=== PATIENT | male | born 1975 | race Caucasian/White ===

== ENCOUNTER 2018-06-21 21:26 | Inpatient (IN) | payer MEDICAID, OTHER ==
[~2018-06-21] VITALS: Ht 193 cm; Wt 113.7 kg
--- NOTE | 2018-06-21 21:39 | NUR ---
PT IN GOWN IN [facility]; PT ROOM SECURED FOR PT AND STAFF SAFETY. PT INSTRUCTED TO REMOVE ALL CLOTHING AND CHANGE INTO GOWN. PT HAD 2 OF 2 BAGS WITH PERSONAL ITEMS LOCKED IN LOCKED STORAGE. PT PROVIDED URINE CUP AND INSTRUCTED TO VOID WHEN POSSIBLE. PT EDUCATED ON ER PROCESS AND VERBALIZES UNDERSTANDING. BUSINESS PROCESS ANALYSTRUBEN JIMENEZ NOTIFIED OF NEED FOR SITTER. AWAITING ERP FOR PT DISPOSITION AND POC.
[2018-06-21] MEDS ORDERED: OLANZAPINE 5 MG TABLET PO STA (21:59)
[2018-06-21] MEDS ORDERED: LORazepam 1MG TABLET PO ONE (22:00)
[2018-06-21 22:10] LABS: BASOPHILS # (AUTO) 0.08 x10^3/uL (0-0.1); BASOPHILS % (AUTO) 1 % (0-1); EOSINOPHILS # (AUTO) 0.12 x10^3/uL (0-0.4); EOSINOPHILS % (AUTO) 1 % (1-7); LYMPHOCYTES # (AUTO) 1.92 x10^3/uL (1-3.4); LYMPHOCYTES % (AUTO) 19 % (22-44); MD NO; MEAN CORPUSCULAR HEMOGLOBIN 31.5 pg (27.5-34.5); MEAN CORPUSCULAR HGB CONC 35.1 g/dL (33.2-36.2); MEAN CORPUSCULAR VOLUME 89.7 fL (81-97); MEAN PLATELET VOLUME 7.9 fL (7.4-10.4); MONOCYTES # (AUTO) 0.54 x10^3/uL (0.2-0.8); MONOCYTES % (AUTO) 5 % (2-9); NEUTROPHILS # (AUTO) 7.42 x10^3/uL (1.8-6.8); NEUTROPHILS % (AUTO) 74 % (42-75); PLATELET COUNT 322 x10^3/uL (130-400); RED BLOOD COUNT 4.57 x10^6/uL (4.38-5.82); RED CELL DISTRIBUTION WIDTH 13.2 % (9.4-14.8)
[2018-06-21 22:17] LABS: ALANINE AMINOTRANSFERASE 42 U/L (12-78); ALBUMIN 4.1 g/dL (3.4-5.0); ANION GAP 6 mmol/L (5-15); CALCIUM 8.5 mg/dL (8.5-10.1); CHLORIDE 109 mmol/L (98-107); SALICYLATE LEVEL 1.7 mg/dL (2.8-20.0)
[2018-06-21 22:20] LABS: ACETAMINOPHEN < 2 mcg/mL (10-30); ALKALINE PHOSPHATASE 86 U/L (45-117); BILIRUBIN,TOTAL 0.6 mg/dL (0.2-1.0); CREATININE 1.23 mg/dL (0.7-1.3); TOTAL PROTEIN 7.1 g/dL (6.4-8.2)
[2018-06-21] MEDS ORDERED: OLANZAPINE 5 MG TABLET ONE (22:22)
[2018-06-21] MEDS ORDERED: LORazepam 1MG TABLET ONE (22:22)
--- NOTE | 2018-06-21 22:34 | NUR ---
PT MEDICATED PER MAY. BREATHALYZER PERFORMED AT BS.
--- NOTE | 2018-06-21 22:54 | NUR ---
REPORT OF PT TO RUBEN MARTE. ALL QUESTIONS ANSWERED. PT MOVED FROM ER ROOM 1 TO ER ROOM 38.
--- NOTE | 2018-06-21 23:16 | NUR ---
REPORT RECEIVED FROM JULI MIRANDA.
--- NOTE | 2018-06-21 23:16 | NUR ---
PT PROVIDED SOME WATER FOR UA.
--- NOTE | 2018-06-21 23:37 | NUR ---
TP RN: TELEPSYCH CONSULT INITIATED.
--- NOTE | 2018-06-21 23:59 | NUR ---
UA COLLECTED AND SENT.
[2018-06-22] LABS: MICROSCOPIC NOT IND
[2018-06-22 00:03] LABS: CULTURE INDICATED? NO
[2018-06-22 00:12] LABS: AMPHETAMINE SCREEN, URINE Negative (Negative); BARBITURATE SCREEN, URINE Negative (Negative); BENZODIAZEPINE SCREEN, URINE Negative (Negative); CANNABINOID SCREEN, URINE Positive (Negative); COCAINE SCREEN, URINE Negative (Negative); METHADONE SCREEN, URINE Negative (Negative); OPIATE SCREEN, URINE Negative (Negative)
--- NOTE | 2018-06-22 00:59 | NUR ---
PT SLEEPING IN [facility]. RESPS EVEN AND UNLABORED. SITTER MONITORING FROM HALLWAY FOR SAFETY. ROOM REMAINS SECURE.
--- NOTE | 2018-06-22 01:51 | NUR ---
pt sleeping in [facility]. resps even and unlabored. sitter monitoring from hallway for safety. room remains secure.
--- NOTE | 2018-06-22 02:45 | NUR ---
pt sleeping in [facility]. resps even and unlabored. sitter monitoring from hallway for safety. room remains secure.
--- NOTE | 2018-06-22 04:09 | NUR ---
pt sleeping in [facility]. resps even and unlabored. sitter monitoring from hallway for safety. room remeins secure.
--- NOTE | 2018-06-22 04:14 | NUR ---
report given to telepsych at this time. all questions answered.
--- NOTE | 2018-06-22 05:00 | NUR ---
RECEIVED REPORT FROM ESTUARDO. PT RESTING CALMLY IN BED. WILL CONTINUE TO MONITOR. SITTER OUTSIDE DOOR.
--- NOTE | 2018-06-22 05:15 | NUR ---
BREAKFAST ORDERED FOR PT.
--- NOTE | 2018-06-22 06:58 | NUR ---
REPORT TO LILLIAN MIRANDA. PT RESTING IN BED WITH EYES CLOSED. SITTER AT DOOR.
--- NOTE | 2018-06-22 07:35 | NUR ---
pt found sleeping in gurney, arouses to verbal stimuli, no acute s/s of distress. denies needs at this time. sitter monitoring from [facility] for safety, room secured.
--- NOTE | 2018-06-22 08:16 | NUR ---
pt provided with breakfast tray. pt denies any further needs at this time
[2018-06-22] MEDS ORDERED: ACETAMINOPHEN 325 MG TABLET PO PRN (08:30)
[2018-06-22] MEDS ORDERED: ONDANSETRON ODT 4 MG PO PRN (08:30)
[2018-06-22] MEDS ORDERED: OLANZAPINE 5 MG TABLET PO PRN (08:30)
[2018-06-22] MEDS ORDERED: POLYETHYLENE GLYCOL 17 GM PACKET PO PRN (08:30)
[2018-06-22] MEDS ORDERED: OLANZAPINE 10 MG INJ IM PRN (08:30)
[2018-06-22] MEDS ORDERED: IBUPROFEN 600 MG TABLET PO PRN (08:30)
[2018-06-22] MEDS ORDERED: BISACODYL 10 MG SUPP PR PRN (08:30)
[2018-06-22] MEDS ORDERED: OLANZAPINE 5 MG TABLET ONE (09:53)
--- NOTE | 2018-06-22 10:11 | NUR ---
PT RESTING IN [facility]. NO ACUTE S/S OF DISTRESS. PT REPORTS PERSISTENT AUDITORY HALLUCINATIONS AND CLARIFIES THE VOICES ARE FROM FAMILY [facility]. PT MEDICATED PER MAY. SITTER MONITORING FROM [facility] FOR SAFETY. ROOM SECURED. PT PROVIDED WITH WATER
--- NOTE | 2018-06-22 12:06 | NUR ---
PT SLEEPING IN GURNEY, AROUSES TO VERBAL STIMULI. PROVIDED WITH MEAL TRAY. PT DENIES FURTHER NEEDS AT THIS TIME. SITTER MONITORING FROM [facility] FOR SAFETY
[2018-06-22] MEDS ORDERED: QUET100T4 PO (12:31)
--- NOTE | 2018-06-22 12:40 | NUR ---
report received at bedside from RUBEN Alexis. Pt is a&ox4, neuro intact. resps even and unlabored. pt denies pain. pt denies any difficulty voiding, denies constipation. pt states he is anxious, requesting prn anxiety medication, pt cooperative. lunch tray consumed 75%. room secure, sitter monitoring from [facility] for safety. hospital bed requested by previous RN, still awaiting arrival from housekeeping dept.
--- NOTE | 2018-06-22 12:50 | NUR ---
hospitalist ERYN Felix called to notify of pt anxiety and request for prn ativan/xanax. HIDE SALTER declined to order anything at this time. RN will continue to monitor.
--- NOTE | 2018-06-22 13:01 | NUR ---
hospital bed arrived, pt changed to hospital bed. pt resting comfortably, watching TV. room remains secure, sitter monitoring from hallway for safety.
--- NOTE | 2018-06-22 14:02 | NUR ---
PT SLEEPING ON HOSPITAL BED, RESPS EVEN AND UNLABORED. SITTER MONITORING FROM [facility] FOR SAFTEY. ROOM REMAINS SECURE.
--- NOTE | 2018-06-22 14:27 | NUR ---
SBAR TO JOVANNY MIRANDA VIA TELEPHONE
--- NOTE | 2018-06-22 14:52 | NUR ---
PT SLEEPING ON HOSPITAL BED, RESPS EVEN AND UNLABORED. ROOM SECURE, SITTER REMAINS AT BEDSIDE FOR SAFETY.
[2018-06-22 15:49] VITALS: BP 113/75
[2018-06-22 16:16] VITALS: BP 113/75
[2018-06-22 20:00] VITALS: BP 121/80
[2018-06-22] MEDS: QUETIAPINE 100MG TABLET PO SCH (20:08)
[2018-06-23 08:21] VITALS: BP 116/72
[2018-06-23] MEDS: HYDROXYZINE PAMOATE 25MG CAP PO PRN (17:29)
[2018-06-23] MEDS ORDERED: HYDROXYZINE PAMOATE 50MG CAP PO PRN (17:30)
[2018-06-23 19:21] VITALS: BP 131/82
[2018-06-23] MEDS: QUETIAPINE 100MG TABLET PO SCH (21:12)
[2018-06-24 08:20] VITALS: BP 147/82
[2018-06-24 19:55] VITALS: BP 134/96
[2018-06-24] MEDS: QUETIAPINE 100MG TABLET PO SCH (20:01)
[2018-06-25 07:31] VITALS: BP 116/68
[2018-06-25 19:16] VITALS: BP 134/74
[2018-06-25] MEDS: QUETIAPINE 100MG TABLET PO SCH (19:22)
[2018-06-26 07:25] VITALS: BP 115/70
[2018-06-26] MEDS: HYDROXYZINE PAMOATE 25MG CAP PO PRN (10:21)
[2018-06-26 19:24] VITALS: BP 101/62
[2018-06-26] MEDS: QUETIAPINE 100MG TABLET PO SCH (20:31)
[2018-06-27 07:23] VITALS: BP 102/62
[2018-06-27] MEDS ORDERED: ALBUTEROL SULFATE 2.5 MG/3 ML NPPB PRN (17:00)
[2018-06-27 17:18] LABS: BASOPHILS # (AUTO) 0.06 x10^3/uL (0-0.1); BASOPHILS % (AUTO) 1 % (0-1); EOSINOPHILS # (AUTO) 0.22 x10^3/uL (0-0.4); EOSINOPHILS % (AUTO) 2 % (1-7); LYMPHOCYTES # (AUTO) 2.53 x10^3/uL (1-3.4); LYMPHOCYTES % (AUTO) 25 % (22-44); MD NO; MEAN CORPUSCULAR HEMOGLOBIN 31.6 pg (27.5-34.5); MEAN CORPUSCULAR HGB CONC 34.6 g/dL (33.2-36.2); MEAN CORPUSCULAR VOLUME 91.1 fL (81-97); MEAN PLATELET VOLUME 8.1 fL (7.4-10.4); MONOCYTES # (AUTO) 0.72 x10^3/uL (0.2-0.8); MONOCYTES % (AUTO) 7 % (2-9); NEUTROPHILS # (AUTO) 6.78 x10^3/uL (1.8-6.8); NEUTROPHILS % (AUTO) 66 % (42-75); PLATELET COUNT 353 x10^3/uL (130-400); RED BLOOD COUNT 5.31 x10^6/uL (4.38-5.82); RED CELL DISTRIBUTION WIDTH 13.7 % (9.4-14.8)
[2018-06-27 20:00] VITALS: BP 125/78
[2018-06-27] MEDS: QUETIAPINE 100MG TABLET PO SCH (20:18)
[2018-06-28 08:00] VITALS: BP 104/69
[2018-06-28] MEDS: HYDROXYZINE PAMOATE 25MG CAP PO PRN (20:10)
[2018-06-28 20:11] VITALS: BP 111/66
[2018-06-28] MEDS: QUETIAPINE 100MG TABLET PO SCH (20:11)
[2018-06-29 07:30] VITALS: BP 107/71
[2018-06-29 20:00] VITALS: BP 107/71
[2018-06-29] MEDS: QUETIAPINE 100MG TABLET PO SCH (20:42)
[2018-06-29] MEDS: HYDROXYZINE PAMOATE 25MG CAP PO PRN (20:42)
[2018-06-30 08:20] VITALS: BP 120/77
[2018-06-30 19:19] VITALS: BP 111/57
[2018-06-30] MEDS: HYDROXYZINE PAMOATE 25MG CAP PO PRN (20:17)
[2018-06-30] MEDS: QUETIAPINE 100MG TABLET PO SCH (20:17)
[2018-07-01 07:21] VITALS: BP 104/71
[2018-07-01] MEDS: DOCUSATE 100 MG CAPSULE PO PRN ×2 (17:15→20:40)
[2018-07-01 20:14] VITALS: BP 107/74
[2018-07-01] MEDS: QUETIAPINE 100MG TABLET PO SCH (20:33)
[2018-07-02 07:46] VITALS: BP 94/63
[2018-07-02] MEDS ORDERED: DIPHENHYDRAMINE 25 MG CAPSULE PO PRN (09:30)
[2018-07-02] MEDS: DOCUSATE 100 MG CAPSULE PO PRN (13:32)
== END 2018-07-02 14:00 | DRG 885 ==
LOC: ED 23:29 → OBSVTOIN 06-22 08:26 → EDIP 06-22 08:26 → 2N 06-22 15:30
PROVIDERS: ADMIT Internal Medicine; ATTEND Internal Medicine
DX: F20.0 Paranoid schizophrenia (principal); F33.1 Major depressive disorder, recurrent, moderate; R45.851 Suicidal ideations; D72.829 Elevated white blood cell count, unspecified; F12.90 Cannabis use, unspecified, uncomplicated; F41.9 Anxiety disorder, unspecified; I50.9 Heart failure, unspecified; Z87.891 Personal history of nicotine dependence; Z76.5 Malingerer [conscious simulation]; Z71.51 Drug abuse counseling and surveillance of drug abuser; Y92.89 Other specified places as the place of occurrence of the external cause
CPT/HCPCS: 36415; 71045; 80053; 80307; 80329; 81003; 84443; 85025; 87806; 93005; 99285; G0378; G0475; G0480

== ENCOUNTER 2019-03-18 17:00 | Emergency (ER) | payer MEDICAID ==
[~2019-03-18] VITALS: Ht 193 cm; Wt 110.0 kg
[~2019-03-18 17:00] MED LIST: QUET100T4 PO
[2019-03-18] MEDS ORDERED: ASPIRIN 81 MG TABLET CHEW PO ONE (18:00)
[2019-03-18] MEDS ORDERED: SODIUM CHLORIDE FLUSH 10ML SYR IVF ONE (18:00)
--- NOTE | 2019-03-18 18:27 | NUR ---
TASK RN: PT SITTING UP IN [facility] WATCHING TELEVISION. NAD NOTED. PT CALM AND COOPERATIVE AT THIS TIME.
--- NOTE | 2019-03-18 18:28 | NUR ---
TASK RN: URINE DRUG SCREEN COLLECTED AND SENT TO LAB
[2019-03-18 18:30] LABS: BASOPHILS # (AUTO) 0.06 x10^3/uL (0-0.1); BASOPHILS % (AUTO) 1 % (0-1); EOSINOPHILS # (AUTO) 0.21 x10^3/uL (0-0.4); EOSINOPHILS % (AUTO) 3 % (1-7); LYMPHOCYTES # (AUTO) 1.66 x10^3/uL (1-3.4); LYMPHOCYTES % (AUTO) 20 % (22-44); MD NO; MEAN CORPUSCULAR HEMOGLOBIN 31.7 pg (27.5-34.5); MEAN CORPUSCULAR HGB CONC 34.3 g/dL (33.2-36.2); MEAN CORPUSCULAR VOLUME 92.4 fL (81-97); MEAN PLATELET VOLUME 8.1 fL (7.4-10.4); MONOCYTES # (AUTO) 0.58 x10^3/uL (0.2-0.8); MONOCYTES % (AUTO) 7 % (2-9); NEUTROPHILS % (AUTO) 70 % (42-75); PLATELET COUNT 291 x10^3/uL (130-400); RED BLOOD COUNT 4.65 x10^6/uL (4.38-5.82); RED CELL DISTRIBUTION WIDTH 13.3 % (9.4-14.8)
[2019-03-18 18:36] LABS: ALANINE AMINOTRANSFERASE 36 U/L (12-78); ALBUMIN 4.2 g/dL (3.4-5.0); ANION GAP 6 mmol/L (5-15); CALCIUM 8.9 mg/dL (8.5-10.1); CHLORIDE 109 mmol/L (98-107); CREATININE 1.13 mg/dL (0.7-1.3); SALICYLATE LEVEL 2.1 mg/dL (2.8-20.0)
[2019-03-18 18:40] LABS: ALKALINE PHOSPHATASE 106 U/L (45-117); BILIRUBIN,TOTAL 0.5 mg/dL (0.2-1.0); TOTAL PROTEIN 7.5 g/dL (6.4-8.2); TROPONIN I < 0.015 ng/mL (0.000-0.045)
[2019-03-18 18:57] LABS: AMPHETAMINE SCREEN, URINE Negative (Negative); BARBITURATE SCREEN, URINE Negative (Negative); BENZODIAZEPINE SCREEN, URINE Negative (Negative); CANNABINOID SCREEN, URINE Negative (Negative); COCAINE SCREEN, URINE Negative (Negative); METHADONE SCREEN, URINE Negative (Negative); OPIATE SCREEN, URINE Negative (Negative)
[2019-03-18] MEDS ORDERED: ASPIRIN 81 MG TABLET CHEW ONE (18:58)
--- NOTE | 2019-03-18 19:10 | NUR ---
REPORT RECEIVED FROM BREAK RUBEN VENTURA. PT RESTING ON GURNEY AT THIS TIME, BED IN LOW POSITION, CALL LIGHT WITHIN REACH, CONNECTED TO MONITORING, VSS. 3P'S CHECKED.
--- NOTE | 2019-03-18 20:33 | NUR ---
PT RESTING ON GURNEY WATCHING TV. PT REQUESTING MEAL AT THIS TIME. PT DENIES OTHER NEEDS AT THIS TIME. CALL LIGHT WITHIN REACH, ALL SAFETY MEASURES IN PLACE.
--- NOTE | 2019-03-18 21:39 | NUR ---
PT PROVIDED BLANKET AND MEAL UPON REQUEST. TELEPSYCH UNAVALIABLE AT THIS TIME. PT RESTING ON GURNEY WATCHING TV. CALL LIGHT WITHIN REACH.
--- NOTE | 2019-03-18 22:36 | NUR ---
PSYCHOLOGIST LEIGH CALLED TO DISCUSS POC
--- NOTE | 2019-03-18 23:16 | NUR ---
PER DR. GONZALEZ, AFTER CONVERSATION WITH SOC PT. TO BE D/C HOME. ALL PT. BELONGINGS RETURNED TO PT. FROM [facility]. PT. HAD D/C HIS OWN IV; BLEEDING NOW CONTROLLED. TIP WAS INTACT.
[2019-03-18 23:30] VITALS: BP 144/77
--- NOTE | 2019-03-18 23:30 | NUR ---
PT. AMBULATORY OUT OF ED WITH STEADY GAIT. PT. REFUSED TO TAKE D/C PAPERS.
[2019-03-19] MEDS ORDERED: TRAMADOL (07:45)
[2019-03-19] MEDS ORDERED: VISTARIL (07:45)
== END 2019-03-18 23:31 ==
LOC: ED 23:25
DX: R07.89 Other chest pain (principal); F33.1 Major depressive disorder, recurrent, moderate; R45.851 Suicidal ideations
CPT/HCPCS: 36415; 71045; 80053; 80307; 83880; 84484; 85025; 93005; 99284

== ENCOUNTER 2019-03-19 05:54 | Emergency (ER) | payer MEDICAID ==
[~2019-03-19] VITALS: Ht 193 cm; Wt 110.8 kg
--- NOTE | 2019-03-19 06:04 | NUR ---
NIL X1 Addendum: 03/19/19 at 0852 by MCIRAC Pt resting on gurney connected to NIBP cuff, continous pulse ox monitor, and dag sprayer. Bed rails up x 2 and call light within reach. Pt watching TV at this time. No needs expressed at this time.
--- NOTE | 2019-03-19 06:11 | NUR ---
NIL X2, PT TOLD REG THAT HE WAS LEAVING TO TAKE HIS KEYS SOMEWHERE.
--- NOTE | 2019-03-19 07:00 | NUR ---
FIRST CONTACT WITH PT. PT RESTING ON [facility]. PT APPEARS ANXIOUS. PER PT, "I CAME AT 4 O CLOCK YESTERDAY AFTERNOON FOR CHEST PAINS AND SUICIDAL THOUGHTS. A MONTH AGO I SLIT MY WRISTS. I LEFT LAST NIGHT BECAUSE THE DOCTOR CLEARED ME, BUT THEN I RETURNED AFTER HAVING CHEST PAINS AND SUICIDAL THOUGHTS AGAIN AT MY HOTEL. I HAVE BACK AND HIP PROBLEMS AND I TAKE TRAZADONE AND VISTARIL."
--- NOTE | 2019-03-19 07:26 | NUR ---
ED maintenance supervisor aware. Per ED maintenance supervisor, "Patient was cleared by telepsych earlier.".
[2019-03-19] MEDS ORDERED: ASPIRIN 81 MG TABLET CHEW ONE (07:29)
[2019-03-19] MEDS ORDERED: ASPIRIN 81 MG TABLET CHEW PO ONE (07:30)
[2019-03-19 07:41] LABS: BASOPHILS # (AUTO) 0.04 x10^3/uL (0-0.1); BASOPHILS % (AUTO) 0 % (0-1); EOSINOPHILS # (AUTO) 0.03 x10^3/uL (0-0.4); EOSINOPHILS % (AUTO) 0 % (1-7); LYMPHOCYTES # (AUTO) 1.04 x10^3/uL (1-3.4); LYMPHOCYTES % (AUTO) 12 % (22-44); MD NO; MEAN CORPUSCULAR HEMOGLOBIN 31.9 pg (27.5-34.5); MEAN CORPUSCULAR HGB CONC 34.6 g/dL (33.2-36.2); MEAN CORPUSCULAR VOLUME 92.2 fL (81-97); MEAN PLATELET VOLUME 7.7 fL (7.4-10.4); MONOCYTES # (AUTO) 0.41 x10^3/uL (0.2-0.8); MONOCYTES % (AUTO) 5 % (2-9); NEUTROPHILS # (AUTO) 7.44 x10^3/uL (1.8-6.8); NEUTROPHILS % (AUTO) 83 % (42-75); PLATELET COUNT 310 x10^3/uL (130-400); RED BLOOD COUNT 4.79 x10^6/uL (4.38-5.82); RED CELL DISTRIBUTION WIDTH 13.5 % (9.4-14.8)
[2019-03-19] MEDS ORDERED: VISTARIL (07:45)
[2019-03-19] MEDS ORDERED: TRAMADOL (07:45)
--- NOTE | 2019-03-19 07:45 | NUR ---
ED MD AWARE OF PT'S SI RATING. ED MD ORDER FOR LOW SI PRECAUTIONS. REMOVED PT'S PERSONAL BELONGINGS AND PLACED IN ONE PERSONAL BELONGING BAD IN ED LOCKER. PT HAS PERSONAL EYEGLASSES WITH HIM. PT RESTING ON GURNEY WITH BEDRAILS UP X 2 AND CALL LIGHT WITHIN REACH. PT CONNECTED TO [employer], NIBP CUFF, AND CONTINOUS PULSE OX MONITOR, CALL LIGHT WITHIN REACH. NO NEEDS EXPRESSED AT THIS TIME.
--- NOTE | 2019-03-19 07:48 | NUR ---
Pt ambulates with steady gait and balance from room to restroom. UA cup provided.
[2019-03-19 07:51] LABS: CHLORIDE 109 mmol/L (98-107)
[2019-03-19 07:57] LABS: ALANINE AMINOTRANSFERASE 37 U/L (12-78); ALBUMIN 4.3 g/dL (3.4-5.0); ALKALINE PHOSPHATASE 94 U/L (45-117); ANION GAP 4 mmol/L (5-15); BILIRUBIN,TOTAL 0.9 mg/dL (0.2-1.0); SALICYLATE LEVEL 2.1 mg/dL (2.8-20.0); TOTAL PROTEIN 7.8 g/dL (6.4-8.2); TROPONIN I < 0.015 ng/mL (0.000-0.045)
[2019-03-19 08:15] LABS: AMPHETAMINE SCREEN, URINE Negative (Negative); BARBITURATE SCREEN, URINE Negative (Negative); BENZODIAZEPINE SCREEN, URINE Negative (Negative); CANNABINOID SCREEN, URINE Negative (Negative); COCAINE SCREEN, URINE Negative (Negative); METHADONE SCREEN, URINE Negative (Negative); OPIATE SCREEN, URINE Negative (Negative)
[2019-03-19] MEDS ORDERED: PALIPERIDONE 3 MG TAB.ER.24 PO SCH (10:30)
[2019-03-19] MEDS ORDERED: HYDROXYZINE PAMOATE 50MG CAP PO PRN (10:30)
--- NOTE | 2019-03-19 10:44 | NUR ---
Pt observed talking out loud in room. No one but pt in room when observed. Pt requesting food and water. Ordering food tray. No other needs requested.
[2019-03-19] MEDS ORDERED: hydrOXyzine 50MG TABLET ONE (10:55)
[2019-03-19 11:01] VITALS: BP 131/80
--- NOTE | 2019-03-19 11:38 | NUR ---
Pt moved from room 4 to room 2. Pt in secured SI room with sitter near doorway [facility] All monitors removed for pt safety. Pt provided water. SI food tray ordered for pt.
--- NOTE | 2019-03-19 11:56 | NUR ---
Lunch tray provided to pt. Pt talking to no one in room. Pt observed having auditory hallucinations. No needs expressed at this time. Sitter in direct line of sight for observation.
--- NOTE | 2019-03-19 12:45 | NUR ---
BREAK RN: PT SLEEPING RESP EVEN AND UNLABORED
--- NOTE | 2019-03-19 15:08 | NUR ---
LATE NOTE ENTRY DUE TO PT CARE FOR 134: Pt resting on gurney with eyes closed. Pt has unlabored respirations with even chest rise and fall. No needs expressed at this time. Sitter near doorway in direct line of sight for observation.
--- NOTE | 2019-03-19 15:10 | NUR ---
Ordered pt food tray and hospital bed. No other needs requested at this time. Sitter near doorway in direct line of sight for observation.
--- NOTE | 2019-03-19 15:10 | NUR ---
LATE NOTE ENTRY FOR 1445: Pt resting on gurney. Pt requesting food. Sitter near doorway in direct line of sight for observation.
--- NOTE | 2019-03-19 15:26 | NUR ---
Hospital bed provided for pt. TV remote provided for pt.
--- NOTE | 2019-03-19 15:45 | NUR ---
Spoke to RUBEN Pepper at [facility] and provided report.
--- NOTE | 2019-03-19 16:02 | NUR ---
Provided food tray to pt per request. Pt appreciative. Sitter near doorway in direct line of sight for [facility].
--- NOTE | 2019-03-19 16:40 | NUR ---
Pt resting on hospital bed supine. No needs requested at this time. Sitter in direct line of sight for observation.
--- NOTE | 2019-03-19 17:39 | NUR ---
Pt aware of plan of care. Pt states apprecaition. Pt provided water. No other needs requested at this time. Sitter near doorway in direct line of sight for observation.
--- NOTE | 2019-03-19 18:11 | NUR ---
Provided report to [facility]. Pt left with [facility] to [place] by ambulance with all personal belongings. NADN. No needs expressed.
== END 2019-03-19 18:15 ==
LOC: ED 10:21
DX: R07.89 Other chest pain (principal); R45.851 Suicidal ideations
CPT/HCPCS: 36415; 71045; 80053; 80307; 83690; 84484; 85025; 93005; 99285

== ENCOUNTER 2019-04-08 00:59 | Emergency (ER) | payer MEDICAID ==
[~2019-04-08] VITALS: Ht 193 cm; Wt 113.6 kg
[~2019-04-08 00:59] MED LIST changes: +TRAMADOL; +VISTARIL
--- NOTE | 2019-04-08 01:16 | NUR ---
PT BIB EMS REPORTS CP FROM A HEART ATTACK YESTERDAY. 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 PT REPORTS CURRENT CHEST PRESSURE. DENIES SOB, N/V. REPORTS HX OF SAME. PT HAS PSYCH HX. PT ALSO REPORTS "I HAVE 1 YEAR TO LIVE, THEY TOLD ME THAT 4 MONTHS AGO", PT UNABLE TO SAY WHO TOLD HIM THIS OR WHY. PT PLACED ON ALL MONITORING, CALL LIGHT WITHIN REACH, BED IN LOW POSITION, X2 RAILS RAISED
--- NOTE | 2019-04-08 01:17 | NUR ---
LABS DRAWN, IMAGING IN ROOM
[2019-04-08 01:28] LABS: BASOPHILS # (AUTO) 0.03 x10^3/uL (0-0.1); BASOPHILS % (AUTO) 0 % (0-1); EOSINOPHILS # (AUTO) 0.22 x10^3/uL (0-0.4); EOSINOPHILS % (AUTO) 2 % (1-7); LYMPHOCYTES # (AUTO) 1.59 x10^3/uL (1-3.4); LYMPHOCYTES % (AUTO) 15 % (22-44); MD NO; MEAN CORPUSCULAR HEMOGLOBIN 31.7 pg (27.5-34.5); MEAN CORPUSCULAR VOLUME 93.1 fL (81-97); MEAN PLATELET VOLUME 7.8 fL (7.4-10.4); MONOCYTES # (AUTO) 0.79 x10^3/uL (0.2-0.8); MONOCYTES % (AUTO) 8 % (2-9); NEUTROPHILS # (AUTO) 7.83 x10^3/uL (1.8-6.8); NEUTROPHILS % (AUTO) 75 % (42-75); PLATELET COUNT 323 x10^3/uL (130-400); RED BLOOD COUNT 4.78 x10^6/uL (4.38-5.82); RED CELL DISTRIBUTION WIDTH 13.4 % (9.4-14.8)
[2019-04-08 01:36] LABS: ALBUMIN 4.2 g/dL (3.4-5.0); ANION GAP 7 mmol/L (5-15); CALCIUM 8.9 mg/dL (8.5-10.1); CHLORIDE 108 mmol/L (98-107); CREATININE 1.02 mg/dL (0.7-1.3); SALICYLATE LEVEL 1.7 mg/dL (2.8-20.0)
[2019-04-08 01:57] LABS: AMPHETAMINE SCREEN, URINE Positive (Negative); BARBITURATE SCREEN, URINE Negative (Negative); BENZODIAZEPINE SCREEN, URINE Negative (Negative); CANNABINOID SCREEN, URINE Negative (Negative); COCAINE SCREEN, URINE Negative (Negative); METHADONE SCREEN, URINE Negative (Negative); OPIATE SCREEN, URINE Negative (Negative)
--- NOTE | 2019-04-08 03:23 | NUR ---
REPORT GIVEN TO TELEPSYCH.
[2019-04-08 03:24] VITALS: BP 132/80
--- NOTE | 2019-04-08 04:29 | NUR ---
PT BELONGINGS REMOVED IN 2 BAGS AND LOCKED IN LOCKER. ROOM SECURED. SITTER NOTIFIED.
[2019-04-08] MEDS ORDERED: ACETAMINOPHEN 500 MG TABLET PO ONE (05:00)
[2019-04-08] MEDS ORDERED: ACETAMINOPHEN 500 MG TABLET ONE (05:02)
--- NOTE | 2019-04-08 05:13 | NUR ---
PT PROVIDED WATER AND BLANKET UPON REQUEST. DENIES FURTHER NEEDS AT THIS TIME.
--- NOTE | 2019-04-08 05:28 | NUR ---
PT PLACED ON HOSPITAL BED.
--- NOTE | 2019-04-08 05:29 | NUR ---
CATALINO RN: PACKET FAXED TO [facility], [facility], AND [facility]
--- NOTE | 2019-04-08 05:49 | NUR ---
TP RN: CONFIRMATION FAX RECEIVED FROM ALL ABOVE FACILITIES.
--- NOTE | 2019-04-08 05:52 | NUR ---
REPORT GIVEN TO [facility] AT THIS TIME. THEY WILL CALL BACK.
--- NOTE | 2019-04-08 06:03 | NUR ---
[facility], DR RAMIREZ ACCEPTING PT.
--- NOTE | 2019-04-08 06:28 | NUR ---
TP RN: ATTEMPTED TO CALL M.T.M X 3 WITH PT. INFO; PER AUTOMATED MESSAGE THEY ARE UNABLE TO LOOK UP PT. WITH INFO PROVIDED. [facility] DISPATCH AWARE OF THIS AND TRANSPORT ETA IS 0800 TO TRANSPORT TO [facility].
--- NOTE | 2019-04-08 06:44 | NUR ---
MORNING MEAL TRAY ORDERED
--- NOTE | 2019-04-08 07:00 | NUR ---
RECEIVED REPORT FROM JARED MIRANDA. PT RESTING IN BED WITH EYES CLOSED. SITTER AT DOOR FOR FREQUENT OBS.
--- NOTE | 2019-04-08 08:54 | NUR ---
[facility] HERE AT THIS TIME TO CIRCUS RIDER PT.
== END 2019-04-08 08:56 ==
LOC: ED 02:14
DX: F23 Brief psychotic disorder (principal); R07.9 Chest pain, unspecified; F17.200 Nicotine dependence, unspecified, uncomplicated
CPT/HCPCS: 36415; 71045; 80048; 80307; 82040; 85025; 93005; 99285